=== PATIENT | male | born 1945 | race Caucasian/White ===

== ENCOUNTER 2017-06-16 13:27 | Day surgery (SDC) | payer MEDICARE, OTHER ==
[2017-06-16] VITALS (8 sets, daily range): BP systolic 114–134; BP diastolic 60–73; PULSE 84–102; RESP 13–18; Ht 165.1 cm; Wt 67.5 kg
[~2017-06-16] VITALS: Ht 165.1 cm; Wt 67.5 kg
[2017-06-16] MEDS ORDERED: INSU100I12 SQ (14:08)
[2017-06-16] MEDS ORDERED: FINA5TAB PO (14:08)
[2017-06-16] MEDS ORDERED: CHOL20002 PO (14:09)
[2017-06-16] MEDS ORDERED: ASPI-664 PO (14:10)
[2017-06-16] MEDS ORDERED: MAGN400T27 PO (14:10)
[2017-06-16] MEDS ORDERED: LACTINEX PO (14:10)
[2017-06-16] MEDS ORDERED: TAMS-14 PO (14:11)
[2017-06-16] MEDS ORDERED: NIFE30TA60 PO (14:12)
[2017-06-16] MEDS ORDERED: SITA50TA2 PO (14:12)
[2017-06-16] MEDS ORDERED: VITA1CAP5 PO (14:14)
[2017-06-16] MEDS ORDERED: HEPARIN 1000 UNITS/ML 10 ML INJ ONE ×2 (14:15→16:16)
[2017-06-16] MEDS ORDERED: LIDOCAINE 1% (MPF) 30 ML INJ ONE (14:15)
[2017-06-16] MEDS ORDERED: GELATIN SIZE 100 SPONGE ONE (14:30)
[2017-06-16] MEDS ORDERED: THROMBIN 5000 UNIT VIAL ONE (14:30)
--- NOTE | 2017-06-16 15:00 | CONS ---
Date/Time of Note Date/Time of Note DATE: 06/16/17 TIME: 14:59 Consultation Date/Type/Reason Admit Date/Time Hx of Present Illness DATE OF CONSULT: 06/16/2017 HISTORY OF PRESENT ILLNESS: Dear doctors, Mr. Levy is a 71-year-old gentleman with history of end-stage renal disease, currently with a right chest wall catheter, who presents for evaluation of a new fistula creation. 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 He currently denies shortness of breath, chest pain, nausea, vomiting, fever, chills. He is able to answer some basic questions. The family is at the bedside. REVIEW OF SYSTEMS: Fourteen point review performed negative except as mentioned in HPI. PAST MEDICAL HISTORY: Entails had hypertension, stroke, end- stage renal disease, diabetes, cholesterol, anemia of chronic disease. Dialysis on Friday, , and Friday. PAST SURGICAL HISTORY: Entails a chest wall catheter placement, paralysis of the left upper extremity and wheelchair bound. SOCIAL HISTORY: Denies tobacco, alcohol or illicit drug use. FAMILY HISTORY: Positive for coronary artery disease and diabetes. PHYSICAL EXAMINATION: GENERAL: He is alert, oriented x3. No apparent distress. HEENT: Normocephalic, atraumatic. EOMI. Mucosa moist. Poor dentition. NECK: Supple. No carotid bruit. LUNGS: Clear to auscultate bilaterally. No crackles. HEART: S1, S2 present. No murmurs. ABDOMEN: Soft, nontender, nondistended. Bowel sounds positive. EXTREMITIES: Right lower extremity, palpable femoral pulse. Nonpalpable pedal pulse. Motor and sensory intact. Capillary refill 2-3 seconds. Left lower extremity, palpable femoral pulse. Nonpalpable pedal pulse. Motor and sensory is limited as the patient is wheelchair bound. Has some paralysis on the left. Capillary refill 2-3 seconds. Left upper extremity palpable brachial pulse. Motor and sensory is limited as the patient has paralysis. Capillary refill 2-3 seconds. Right upper extremity palpable brachial pulse. Motor and sensory intact. Capillary refill 2-3 seconds. ASSESSMENT AND PLAN: 1. Bilateral lower extremity atherosclerosis: The patient has nonpalpable pedal pulses. However, no current ulcers or gangrene has been identified. The patient is wheelchair bound therefore, will limited intervention if needed any time soon from vascular surgery standpoint. We will plan to continue with our vascular surveillance without any lower extremity evaluations in near future. 2. End-stage renal disease: The patient is currently chest wall catheter is functioning well on the right side. We will plan to obtain bilateral upper extremity vein mapping. Arterial studies for eventual creation of a fistula. We will plan to create a fistula in his left upper extremity. Optimize vascular status (nutrition, exercise, sugar control, anti-platelets). Patient will need medical cardiac clearance. Discussed findings and plans with the patient and family at the bedside and they understand. Thank you for allowing us to partake in the care of your patient. Please call with any questions. Social History Smoking Status: Never smoker Exam/Review of Systems Vital Signs Vitals Vital Signs Date Time Temp Pulse Resp B/P Pulse Ox O2 Delivery O2 Flow Rate FiO2 06/16/17 14:34 98.3 102 18 114/60 98 Room Air Results Result Diagram: 06/16/17 1415 06/16/17 1415 Results 24 hrs Laboratory Tests Test 06/16/17 14:15 White Blood Count 11.2 H Red Blood Count 3.69 L Hemoglobin 10.9 L Hematocrit 33.1 L Mean Corpuscular Volume 89.7 Mean Corpuscular Hemoglobin 29.5 Mean Corpuscular Hemoglobin Concent 32.9 Red Cell Distribution Width 15.2 H Platelet Count 282 Mean Platelet Volume 9.5 Neutrophils % 53.4 Lymphocytes % 19.0 Monocytes % 7.3 Eosinophils % 19.7 H Basophils % 0.3 Nucleated Red Blood Cells % 0.0 Neutrophils # 6.0 Lymphocytes # 2.1 Monocytes # 0.8 Eosinophils # 2.2 H Basophils # 0.0 Nucleated Red Blood Cells # 0.0 Prothrombin Time 12.4 Prothrombin Time Ratio 1.0 INR International Normalized Ratio 0.92 Activated Partial Thromboplast Time 29.7 Sodium Level 139 Potassium Level 4.5 Chloride Level 102 Carbon Dioxide Level 24 Anion Gap 18 H Blood Urea Nitrogen 46 H Creatinine 4.39 H Glucose Level 161 Calcium Level 9.2 Total Bilirubin 0.1 L Direct Bilirubin 0.00 Indirect Bilirubin 0.1 Aspartate Amino Transf (AST/SGOT) 23 Alanine Aminotransferase (ALT/SGPT) 34 Alkaline Phosphatase 139 H Total Protein 7.8 Albumin 4.1 Globulin 3.70 H Albumin/Globulin Ratio 1.10 YOMAIRA MILLER MD Jun 16, 2017 15:00
[2017-06-16] MEDS ORDERED: MIDAZOLAM 1 MG/ML 2 ML INJ ONE (15:10)
[2017-06-16] MEDS ORDERED: FENTAnyl 50 MCG/ML VIAL ONE (15:11)
[2017-06-16] MEDS ORDERED: ROPIVACAINE 0.5 % 30 ML VIAL ONE (15:15)
--- NOTE | 2017-06-16 15:18 | PDOCDIS ---
Discharge Instructions DIAGNOSIS Discharge Diagnosis esrd CONDITION Patient Condition: Good HOME CARE INSTRUCTIONS: Special Diet: RESUME PREOP DIET ACTIVITY: Activity Restrictions: Avoid heavy lifting Do not Drive Do not operate Machinery Do not operate Power Tool Avoid Heavy Housework Keep Limb Elevated Bathing Restrictions: Sponge Bath FOLLOW UP/APPOINTMENTS Follow-up Plan FOLLOWUP IN TWO WEEKS AT [facility] MAY REMOVE LUE ARM SLING YOMAIRA MILLER MD Jun 16, 2017 15:18
--- NOTE | 2017-06-16 15:18 | PDOCDIS ---
Discharge Instructions DIAGNOSIS Discharge Diagnosis esrd CONDITION Patient Condition: Good HOME CARE INSTRUCTIONS: Special Diet: RESUME PREOP DIET ACTIVITY: Activity Restrictions: Avoid heavy lifting Do not Drive Do not operate Machinery Do not operate Power Tool Avoid Heavy Housework Keep Limb Elevated Bathing Restrictions: Sponge Bath FOLLOW UP/APPOINTMENTS Follow-up Plan FOLLOWUP IN TWO WEEKS AT [facility] MAY REMOVE LUE ARM SLING YOMAIRA MILLER MD Jun 16, 2017 15:18
[2017-06-16] MEDS ORDERED: morphine 10 MG INJ ONE (15:33)
[2017-06-16] MEDS ORDERED: CEFAZOLIN 1 GM INJ ONE (17:01)
--- NOTE | 2017-06-16 17:20 | OPR ---
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 ESTIMATED BLOOD LOSS: Minimal. TRANSFUSION: None SPECIMEN: None. HEPARIN: 2500units INDICATIONS: This is a 72-year-old male whom has ESRD with a right chest wall catheter on dialysis. The patient has a poor cephalic vein conduit therefore decision was made to create a new brachiobasilic fistula.. The risks and benefits of the procedure were discussed with the patient and not limited to , NH, pneumonia, stroke, infection, thrombosis of graft and arterial, revisions of AVF, steal and she elected to undergo surgical intervention. DESCRIPTION: The patient was placed in supine position on the operating room table. The arms were placed at 80 degrees. The normal bony prominences were padded. The anesthesia team had placed the appropriate lines and anesthesia was induced. Time-out performed and the appropriate site was marked and confirmed. The patient's left upper extremity prepped and draped in the usual standard sterile fashion. Preoperative antibiotics were administered prior to the skin incision. Skin along the medial aspect of the upper arm was infiltrated with 1% lidocaine. A 5 cm longitudinal incision was then performed along the medial aspect of the inner upper arm towards the antecubital fossa. The incision was deepened down through the subcutaneous tissue and fat, and the basilic vein was identified at the level of the antecubital fossa. The vein was encircled with a vessel loop and then dissected proximally about 2 inches to the mid upper arm and 1 inch distally and its branches were isolated, ligated and divided. The overlying nerve branches were preserved. The basilic vein was then dissected free from the antecubital fossa and directed towards the brachial artery in the antecubital fossa. Vein was flushed with heparinized saline solution and checked for kinks and twists. The brachial artery was then palpated and the soft tissue overlying it was incised. The brachial artery was exposed and encircled with vessel loop. A 2 cm segment of the brachial artery was then circumferentially dissected. The patient was then given 2500 units of heparin intravenously. Yasargil clamps were then applied on the brachial artery and a 6 mm arteriotomy was then performed in its anterior wall. Basilic vein was spatulated to match the size of the arteriotomy. An anastomosis was then created between the end of the vein and the arteriotomy using a 6-0 Prolene running suture. At the completion of the anastomosis, the basilic vein was allowed to back bleed and the brachial artery was forward flushed and back bled. The anastomosis was irrigated with heparinized saline solution. The sutures were tied and the suture line was checked for hemostasis, which was adequate. There was an excellent thrill in the vein and the vein was readily palpable under the skin. Hemostasis was then ensured. There was evidence of an excellent pulse in the radial and ulnar arteries at the wrist. The wounds were irrigated and then closed with 3-0 Vicryl for the subcutaneous tissue. The skin was closed with skin marko. The patient tolerated the procedure well and was transferred to the postanesthesia care unit in stable condition. All instruments , needles and sponge counts were correct 2 ROHITH MILLER MD Jun 16, 2017 17:20
== END 2017-06-16 19:04 | disposition home or self-care (01) ==
LOC: SDS 13:27
PROVIDERS: ATTEND Student in an Organized Health Care Education/Training Program
DX: N18.6 End stage renal disease (principal); Z49.01 Encounter for fitting and adjustment of extracorporeal dialysis catheter; I12.0 Hypertensive chronic kidney disease with stage 5 chronic kidney disease or end stage renal disease; E11.22 Type 2 diabetes mellitus with diabetic chronic kidney disease
CPT/HCPCS: 36821; 80053; 82962; 85025; 85610; 85730; J0690; J1644; J2250; J2270; J2795; J3010